=== PATIENT | male | born 1975 | race Caucasian/White ===

== ENCOUNTER 2020-04-13 14:43 | Emergency (ER) | payer OTHER ==
[2020-04-13] MEDS ORDERED: KETOROLAC 60 MG/2 ML VIAL IM STA (16:44)
--- NOTE | 2020-04-13 16:44 | ED Physician Documentation ---
PD HPI LOWER EXT INJURY - Stated complaint Stated Complaint: RT KNEE INJURY - Chief complaint Chief Complaint: Ext Problem - History of Present Illness PD HPI LOW EXT INJURY LOCATION: Right, Knee Type of injury: Twist Where injury occurred: Home Timing - onset: How many hours ago (3) Timing - details: Abrupt onset - Additional information Additional information: 44-year-old male presents to the emergency department with chief complaint of acute right knee pain. He reports that he was walking and rolled his left ankle but unfortunately twisted his right knee. He has been unable to bear weight since. He does report a longstanding history of chronic knee pain after time in the . He has been told that an orthopedic surgeon wants to do a total knee replacement at some point in the future. Patient is visiting here from [place]. Review of Systems Constitutional: denies: Fever, Chills Cardiac: denies: Chest pain / pressure, Palpitations Respiratory: denies: Dyspnea, Cough GI: denies: Abdominal Pain, Abdominal Swelling Skin: denies: Rash, Lesions, Abrasion (s), Laceration (s) Musculoskeletal: reports: Joint pain, Joint swelling Neurologic: denies: Generalized weakness, Focal weakness, Numbness PD PAST MEDICAL HISTORY - Past Medical History Past Medical History: Yes Cardiovascular: None Respiratory: None Endocrine/Autoimmune: None GI: GERD : None HEENT: None Psych: None Musculoskeletal: Other Derm: None - Past Surgical History Past Surgical History: Yes General: Appendectomy - Present Medications Home Medications: Ambulatory Orders Medication Instructions Recorded Confirmed Hydrocodone/Acetaminophen 1 each PO BID PRN #4 tablet 04/13/20 [Hydrocodone-Acetamin 5-325 mg] Ibuprofen [Motrin] 800 mg PO Q8H PRN #30 tablet 04/13/20 - Allergies Allergies/Adverse Reactions: Allergies Allergy/AdvReac Type Severity Reaction Status Date / Time anthrax vaccine Allergy Anaphylaxis Verified 04/13/20 15:01 - Social History Does the pt smoke?: No Smoking Status: Never smoker Does the pt drink ETOH?: No Does the pt have substance abuse?: No - Immunizations Immunizations are current?: Yes - POLST Patient has POLST: No PD ED PE NORMAL - General General: Alert and oriented X 3, No acute distress, Well developed/nourished - Respiratory Respiratory: No respiratory distress - Extremities Extremities: No calf tenderness / cord, Other (tenderness right lateral knee. remains in extened position; pt will not flex. Tenderness medially and laterally. Does not allow stress testing. 2+ DP pulse distally). No: No deformity, No tenderness to palpate, Normal ROM s pain Results - Vitals Vitals: Vital Signs - 24 hr 04/13/20 14:59 Temperature 37 C Heart Rate 77 Respiratory 18 Rate Blood Pressure 131/86 H O2 Saturation 97 Oxygen O2 Source Room air - Rads (name of study) right knee Radiology: Final report received (No fracture or acute osseous process) PD MEDICAL DECISION MAKING - ED course Complexity details: reviewed results, d/w patient ED course: 44-year-old male here with acute right knee pain after twisting injury earlier this afternoon. He does report a history of previous knee injury for which she sees an orthopedic surgeon in [place]. He has reported to me that at some point he is going to need a total knee replacement. At the time of evaluation in the emergency department patient is unwilling to bear weight on the right knee. He denies hip or ankle pain. - X-ray of the knee is negative for acute pathology - History and exam likely represents internal knee derangement. In the long- term given his history of chronic pain and previous arthroscopy he will likely need an MRI. Patient will be placed in a knee elbow immobilizer and given crutches for use while here on [facility]. He is advised to follow very closely with his primary care provider and orthopedic doctor once he returns to [place] - Departure - Departure Disposition: 01 Home, Self Care Clinical Impression: Knee pain Qualifiers: Chronicity: acute Laterality: right Qualified Code(s): M25.561 - Pain in right knee Condition: Stable Instructions: ED Sprain Knee Collateral Ligaments Prescriptions: Hydrocodone/Acetaminophen [Hydrocodone-Acetamin 5-325 mg] 1 each PO BID PRN #4 tablet PRN Reason: Pain Ibuprofen [Motrin] 800 mg PO Q8H PRN #30 tablet PRN Reason: PAIN &/OR FEVER Comments: Alexi I have prescribed ibuprofen and a very limited number of [place] to help with your pain while you are here on the [place]. It is very important a follow- up with your orthopedic doctor when you return to [place]. He likely needs to reevaluate the knee with an MRI. Please use ice and a compress to help with the swelling. Remain in the knee immobilizer when you are out of bed.
--- NOTE | 2020-04-13 17:01 | XRAY Report ---
PROCEDURE: Ankle 3 View RT INDICATIONS: rolled ankle TECHNIQUE: 3 views of the ankle were acquired. COMPARISON: None FINDINGS: Bones: No acute fractures or dislocations. Small ossification noted adjacent to the medial malleolus which may represent accessory ossicle or chronic avulsion fracture. Ankle mortise is normally aligne d. No suspicious bony lesions. Soft tissues: No tibiotalar joint effusion. Achilles tendon appears normal. Lateral soft tissue swe lling is noted and ligamentous injury cannot be excluded. IMPRESSION: 1. No acute fracture. No acute osseous lesion. If there is continued clinical concern for pathology, then repeat plain film radiographs (7-10 days) or advanced imaging (CT, MR, bone scan) should be cons idered for further evaluation. 2. Ossification adjacent to the medial malleolus may represent accessory ossicle versus chronic avuls ion fracture. Reviewed by: Madina Lima MD, PhD on 04/13/2020 5:00 PM PDT Approved by: Madina Lima MD, PhD on 04/13/2020 5:00 PM PDT Station ID: [id number]
--- NOTE | 2020-04-13 17:02 | XRAY Report ---
PROCEDURE: Knee 2 View RT INDICATIONS: knee pain after rolling ankle TECHNIQUE: 2 views of the right knee(s) were acquired. COMPARISON: None. FINDINGS: Bones: No fractures or dislocations. No suspicious bony lesions. Mild tricompartmental osteoarthri tis. Soft tissues: No joint effusion. No suspicious soft tissue calcifications. IMPRESSION: No fracture. No acute osseous lesion. If there is continued clinical concern for pathology, then repe at plain film radiographs (7-10 days) or advanced imaging (CT, MR, bone scan) should be considered fo r further evaluation. Reviewed by: Madina Lima MD, PhD on 04/13/2020 5:01 PM PDT Approved by: Madina Lima MD, PhD on 04/13/2020 5:01 PM PDT Station ID: [id number]
[2020-04-13 17:52] VITALS: BP 120/88
== END 2020-04-13 17:51 | disposition home or self-care (01) ==
LOC: ED 14:43
DX: M25.561 Pain in right knee (principal); M25.461 Effusion, right knee; X50.1XXA Overexertion from prolonged static or awkward postures, initial encounter; Y93.01 Activity, walking, marching and hiking; Y92.009 Unspecified place in unspecified non-institutional (private) residence as the place of occurrence of the external cause
CPT/HCPCS: 96372; 99283